=== PATIENT | female | born 1940 | race Caucasian/White ===

== ENCOUNTER 2019-07-02 13:54 | Inpatient (IN) | payer MEDICARE, BC ==
[~2019-07-02] VITALS: Ht 157.5 cm; Wt 92.4 kg
[~2019-07-02 13:54] MED LIST: ASPI-529 PO; BENA10TA11 PO; CA C-1 PO; CARB-87 PO; CHOL10002 PO; DOCU-148 PO; MELA1TAB21 PO; OMEG1CAP2 PO; OXYB5TAB16 PO; POLY119P2 PO; SIMV40TA PO; WARF10TA50 PO
[2019-07-02] MEDS ORDERED: acetaminophen 325mg tablet PO ONE (14:50)
--- NOTE | 2019-07-02 15:10 | NUR ---
PT OUT TO CT VIA [facility] WITH RAILROAD CAR LOADER
[2019-07-02 15:14] LABS: BASOPHILS % (AUTO) 0.7 % (0-1); EOSINOPHILS # (AUTO) 0.1 X10'3 (0-0.9); EOSINOPHILS % (AUTO) 1.2 % (0-6); HEMATOCRIT 39.2 % (35.0-45.0); HEMOGLOBIN 13.1 g/dl (12.0-16.0); LYMPHOCYTES # (AUTO) 1.2 X10'3 (1.1-4.8); LYMPHOCYTES % (AUTO) 18.1 % (21-51); MEAN CORPUSCULAR HEMOGLOBIN 31.1 PG (27.0-31.0); MEAN CORPUSCULAR HGB CONC 33.6 g/dL (33.0-36.5); MEAN CORPUSCULAR VOLUME 92.6 FL (78-98); MEAN PLATELET VOLUME 9.5 FL (7.4-10.4); MONOCYTES # (AUTO) 0.8 X10'3 (0-0.9); MONOCYTES % (AUTO) 11.1 % (2-12); NEUTROPHILS # (AUTO) 4.7 X10'3 (1.8-7.7); NEUTROPHILS % (AUTO) 68.9 % (42-75); PLATELET COUNT 146 X10'3 (140-440); RED BLOOD COUNT 4.23 X10'6 (4.20-5.60); RED CELL DISTRIBUTION WIDTH 13.7 % (11.5-14.5); WHITE BLOOD COUNT 6.9 X10'3 (4.5-11.0)
[2019-07-02 15:32] LABS: ALANINE AMINOTRANSFERASE 15 U/L (12-78); ALBUMIN 3.6 G/DL (3.4-5.0); ALBUMIN/GLOBULIN RATIO 1.2 (1.1-1.5); ALKALINE PHOSPHATASE 87 IU/L (46-116); ANION GAP 7 (8-16); ASPARTATE AMINO TRANSFERASE 50 U/L (10-37); BILIRUBIN,TOTAL 0.9 MG/DL (0.1-1.0); BLOOD UREA NITROGEN 25 MG/DL (7-18); BUN/CREATININE RATIO 32.5 (6.6-38.0); CALCIUM 9.1 MG/DL (8.5-10.1); CHLORIDE 108 MMOL/L (99-107); CREATININE 0.77 MG/DL (0.40-0.90); GLUCOSE 93 MG/DL (70-104); POTASSIUM 3.6 MMOL/L (3.5-5.1); SODIUM 144 MMOL/L (135-145); TOTAL CARBON DIOXIDE 28.7 MMOL/L (24-32); TOTAL PROTEIN 6.5 G/DL (6.4-8.2); eGFR 72 ML/MIN
[2019-07-02] MEDS ORDERED: CITA20TA26 PO (15:36)
[2019-07-02] MEDS ORDERED: ASPI81TA52 PO (15:36)
[2019-07-02 15:41] LABS: MAGNESIUM 1.7 MG/DL (1.5-2.4)
[2019-07-02] MEDS ORDERED: magnesium 4gm in 100ml NS 100 ML IV PRN (15:55)
[2019-07-02] MEDS ORDERED: bisacodyl 10mg suppository rectal RC PRN (15:55)
[2019-07-02] MEDS ORDERED: HYDROcodone/acetaminophen 5mg/325mg tablet PO PRN (15:55)
[2019-07-02] MEDS ORDERED: mag hydrox/Alum hydrox/simeth 30ml oral suspension PO PRN (15:55)
[2019-07-02] MEDS ORDERED: morphine 2 MG/ML inj. syringe IV PRN ×2 (15:55)
[2019-07-02] MEDS ORDERED: potassium Cl 20 mEq SR tablet PO PRN (15:55)
[2019-07-02] MEDS ORDERED: magnesium Cl slow-release 64mg tablet PO PRN (15:55)
[2019-07-02] MEDS ORDERED: potassium CL 10mEq/100ml bag 100 ML IV PRN ×2 (15:55)
[2019-07-02] MEDS ORDERED: magnesium 2GM in 50ml NS 50 ML IV PRN (15:55)
[2019-07-02] MEDS ORDERED: diphenhydrAMINE 25mg capsule PO PRN (15:55)
[2019-07-02] MEDS ORDERED: diphenhydrAMINE 50 mg/ml inj IV PRN (15:55)
[2019-07-02] MEDS ORDERED: acetaminophen 325mg tablet PO PRN ×2 (15:55)
[2019-07-02] MEDS ORDERED: ondansetron/PF 4mg/2ml inj IV PRN (15:55)
[2019-07-02] MEDS ORDERED: magnesium hydroxide 30ml (MOM) UD suspension PO PRN (15:55)
[2019-07-02] MEDS: K and/or MAG REPLACEMENT MC SCH (15:55)
[2019-07-02] MEDS ORDERED: acetaminophen 650mg rectal suppository RC PRN (15:55)
[2019-07-02] MEDS ORDERED: HYDROcodone/acetaminophen 10/325mg tab PO PRN (15:55)
[2019-07-02 15:56] LABS: CREATINE KINASE 1638 U/L (26-192)
[2019-07-02] MEDS: normal saline 1000ml 1,000 ML IV SCH (16:39)
--- NOTE | 2019-07-02 16:41 | NUR ---
ULTRASOUND AT THE BEDSIDE DOING AN ECHO STUDY
[2019-07-02 16:51] LABS: CLARITY,URINE SLIGHTLY CLOUDY (Clear); COLOR,URINE YELLOW (Yellow); GLUCOSE, URINE NEGATIVE (Neg); KETONES,URINE 15 mg/dl (Neg); LEUKOCYTE ESTERASE ,URINE NEGATIVE (Neg); NITRITES, URINE NEGATIVE (Neg); OCCULT BLOOD,URINE TRACE-INTACT (Neg); PH,URINE 6.5 (4.8-8.0); PROTEIN,URINE NEGATIVE (Neg)
[2019-07-02 16:52] LABS: UA COLLECTION TYPE STRAIGHT CATH
--- NOTE | 2019-07-02 17:05 | NUR ---
Received report from Arturo CARRION in ED, was provided opportunity to ask questions. Will assess patient when she arrives.
[2019-07-02 17:07] LABS: MUCUS STRANDS FEW /LPF (Neg); SQUAMOUS EPITHELIAL CELL,UR MANY /LPF (FEW)
[2019-07-02 17:08] LABS: BACTERIA,URINE FEW /HPF (Neg); WBC,URINE 0-4 /HPF (0-4)
[2019-07-02 17:30] VITALS: BP 156/68
--- NOTE | 2019-07-02 18:00 | NUR ---
Patient in room [facility]. I have received report from SHEYLA Burk and had the opportunity to ask questions and assume patient care.
--- NOTE | 2019-07-02 18:43 | NUR ---
Problems reprioritized. Patient report given, questions answered & plan of care reviewed with Jeffrey CARRION. Patient resting in bed, eagar for food but told her we will need to look at orders.
[2019-07-02 20:00] VITALS: BP 137/58
--- NOTE | 2019-07-02 20:21 | NUR ---
pt back from MRI
[2019-07-02] MEDS ORDERED: temazepam 15mg capsule PO PRN (21:00)
[2019-07-02] MEDS: carbidoba-levodopa 25-100mg tablet PO SCH (21:28)
[2019-07-02] MEDS: docusate sod 100mg capsule PO SCH (21:37)
[2019-07-02] MEDS: heparin, porcine 5000 units/ml vial SQ SCH (21:38)
[2019-07-03] VITALS (7 sets, daily range): BP systolic 98–158; BP diastolic 45–80
[2019-07-03] MEDS: normal saline 1000ml 1,000 ML IV SCH ×3 (01:53→17:35)
[2019-07-03 05:49] LABS: BASOPHILS % (AUTO) 0.9 % (0-1); EOSINOPHILS # (AUTO) 0.2 X10'3 (0-0.9); EOSINOPHILS % (AUTO) 4.1 % (0-6); HEMATOCRIT 37.6 % (35.0-45.0); HEMOGLOBIN 12.4 g/dl (12.0-16.0); LYMPHOCYTES # (AUTO) 1.6 X10'3 (1.1-4.8); LYMPHOCYTES % (AUTO) 30.9 % (21-51); MEAN CORPUSCULAR HEMOGLOBIN 30.5 PG (27.0-31.0); MEAN CORPUSCULAR VOLUME 92.4 FL (78-98); MEAN PLATELET VOLUME 9.8 FL (7.4-10.4); MONOCYTES # (AUTO) 0.6 X10'3 (0-0.9); MONOCYTES % (AUTO) 11.7 % (2-12); NEUTROPHILS # (AUTO) 2.7 X10'3 (1.8-7.7); NEUTROPHILS % (AUTO) 52.4 % (42-75); PLATELET COUNT 147 X10'3 (140-440); RED BLOOD COUNT 4.07 X10'6 (4.20-5.60); RED CELL DISTRIBUTION WIDTH 13.5 % (11.5-14.5); WHITE BLOOD COUNT 5.1 X10'3 (4.5-11.0)
[2019-07-03 06:26] LABS: ALANINE AMINOTRANSFERASE 11 U/L (12-78); ALBUMIN 3.1 G/DL (3.4-5.0); ALBUMIN/GLOBULIN RATIO 1.1 (1.1-1.5); ALKALINE PHOSPHATASE 74 IU/L (46-116); ANION GAP 9 (8-16); ASPARTATE AMINO TRANSFERASE 43 U/L (10-37); BILIRUBIN,TOTAL 0.7 MG/DL (0.1-1.0); BLOOD UREA NITROGEN 21 MG/DL (7-18); BUN/CREATININE RATIO 26.3 (6.6-38.0); CALCIUM 8.8 MG/DL (8.5-10.1); CHLORIDE 109 MMOL/L (99-107); CHOL/HDL RATIO 2.8 (0.00-4.99); CHOLESTEROL 156 MG/DL (0-200); CREATINE KINASE 935 U/L (26-192); GLUCOSE 84 MG/DL (70-104); HDL CHOLESTEROL 55 MG/DL (35-60); LDL CHOLESTEROL 90 MG/DL (50-100); MAGNESIUM 1.8 MG/DL (1.5-2.4); PHOSPHORUS 3.6 MG/DL (2.3-4.5); POTASSIUM 3.4 MMOL/L (3.5-5.1); SODIUM 145 MMOL/L (135-145); TOTAL CARBON DIOXIDE 27.4 MMOL/L (24-32); TOTAL PROTEIN 5.8 G/DL (6.4-8.2); TRIGLYCERIDES 90 MG/DL (20-135); eGFR 69 ML/MIN
--- NOTE | 2019-07-03 06:47 | NUR ---
Problems reprioritized. Patient report given, questions answered & plan of care reviewed with SHEYLA Aldana and SHEYLA Marie.
[2019-07-03] MEDS: docusate sod 100mg capsule PO SCH ×2 (07:50→20:16)
[2019-07-03] MEDS: vitamin D (cholecalciferol) 1,000 unit tablet PO SCH (07:50)
[2019-07-03] MEDS: carbidoba-levodopa 25-100mg tablet PO SCH ×2 (07:51→20:16)
[2019-07-03] MEDS: lisinopril 10 MG tablet PO SCH (07:51)
[2019-07-03] MEDS: aspirin 81mg tablet.DR PO SCH (07:52)
[2019-07-03] MEDS: atorvastatin 20mg tablet PO SCH (07:52)
[2019-07-03] MEDS: citalopram 20mg tablet PO SCH (07:53)
[2019-07-03] MEDS: heparin, porcine 5000 units/ml vial SQ SCH ×2 (07:56→20:22)
[2019-07-03] MEDS: potassium Cl 20 mEq SR tablet PO PRN ×3 (08:49→20:22)
[2019-07-03] MEDS: K and/or MAG REPLACEMENT MC SCH (08:50)
--- NOTE | 2019-07-03 14:20 | NUR ---
page sent to social services specialist per Dr Dominguez regarding patient being unsafe to drive, and that would like notification sent to [employer].
--- NOTE | 2019-07-03 14:22 | NUR ---
Straight cath done for urine culture per dr olivares. 85ml in urine per bladder scan, 70ml out.
--- NOTE | 2019-07-03 18:30 | NUR ---
Patient in room [facility]. I have received report from Katya RN and Joel RN and had the opportunity to ask questions and assume patient care.
--- NOTE | 2019-07-03 18:33 | NUR ---
Problems reprioritized. Patient report given, questions answered & plan of care reviewed with SHEYLA Murphy.
[2019-07-04] VITALS: BP 131/57
[2019-07-04 05:48] LABS: BASOPHILS % (AUTO) 0.6 % (0-1); EOSINOPHILS # (AUTO) 0.3 X10'3 (0-0.9); EOSINOPHILS % (AUTO) 6.7 % (0-6); HEMOGLOBIN 11.9 g/dl (12.0-16.0); LYMPHOCYTES # (AUTO) 1.3 X10'3 (1.1-4.8); LYMPHOCYTES % (AUTO) 29.6 % (21-51); MEAN CORPUSCULAR HEMOGLOBIN 31.2 PG (27.0-31.0); MEAN CORPUSCULAR HGB CONC 33.1 g/dL (33.0-36.5); MEAN CORPUSCULAR VOLUME 94.1 FL (78-98); MEAN PLATELET VOLUME 9.8 FL (7.4-10.4); MONOCYTES # (AUTO) 0.5 X10'3 (0-0.9); MONOCYTES % (AUTO) 12.3 % (2-12); NEUTROPHILS # (AUTO) 2.3 X10'3 (1.8-7.7); NEUTROPHILS % (AUTO) 50.8 % (42-75); PLATELET COUNT 128 X10'3 (140-440); RED BLOOD COUNT 3.82 X10'6 (4.20-5.60); RED CELL DISTRIBUTION WIDTH 13.7 % (11.5-14.5); WHITE BLOOD COUNT 4.5 X10'3 (4.5-11.0)
[2019-07-04 06:03] LABS: ALANINE AMINOTRANSFERASE 9 U/L (12-78); ALBUMIN 2.8 G/DL (3.4-5.0); ALBUMIN/GLOBULIN RATIO 1.2 (1.1-1.5); ALKALINE PHOSPHATASE 71 IU/L (46-116); ANION GAP 5 (8-16); ASPARTATE AMINO TRANSFERASE 26 U/L (10-37); BILIRUBIN,TOTAL 0.4 MG/DL (0.1-1.0); BLOOD UREA NITROGEN 18 MG/DL (7-18); BUN/CREATININE RATIO 26.1 (6.6-38.0); CALCIUM 8.4 MG/DL (8.5-10.1); CHLORIDE 111 MMOL/L (99-107); CREATINE KINASE 519 U/L (26-192); CREATININE 0.69 MG/DL (0.40-0.90); GLUCOSE 108 MG/DL (70-104); MAGNESIUM 1.7 MG/DL (1.5-2.4); PHOSPHORUS 3.4 MG/DL (2.3-4.5); POTASSIUM 4.4 MMOL/L (3.5-5.1); SODIUM 145 MMOL/L (135-145); TOTAL CARBON DIOXIDE 29.2 MMOL/L (24-32); TOTAL PROTEIN 5.2 G/DL (6.4-8.2); eGFR 82 ML/MIN
--- NOTE | 2019-07-04 06:18 | NUR ---
Problems reprioritized. Patient report given, questions answered & plan of care reviewed with SHEYLA Aldana and SHEYLA Murillo.
[2019-07-04 07:00] VITALS: BP 153/67
[2019-07-04] MEDS: normal saline 1000ml 1,000 ML IV SCH ×2 (07:53→15:18)
[2019-07-04] MEDS: K and/or MAG REPLACEMENT MC SCH (08:00)
[2019-07-04] MEDS: lisinopril 10 MG tablet PO SCH (08:50)
[2019-07-04] MEDS: heparin, porcine 5000 units/ml vial SQ SCH ×2 (08:51→20:24)
[2019-07-04] MEDS: carbidoba-levodopa 25-100mg tablet PO SCH ×2 (08:51→20:21)
[2019-07-04] MEDS: docusate sod 100mg capsule PO SCH ×2 (08:51→20:21)
[2019-07-04] MEDS: vitamin D (cholecalciferol) 1,000 unit tablet PO SCH (08:52)
[2019-07-04] MEDS: citalopram 20mg tablet PO SCH (08:52)
[2019-07-04] MEDS: atorvastatin 20mg tablet PO SCH (08:52)
[2019-07-04] MEDS: aspirin 81mg tablet.DR PO SCH (08:52)
[2019-07-04 11:00] VITALS: BP 162/73
[2019-07-04 17:44] VITALS: BP_SYST 131; BP_SYST 163; BP_SYST 171; BP_DIAS 68; BP_DIAS 70; BP_DIAS 77
[2019-07-04 18:00] VITALS: BP 107/60
--- NOTE | 2019-07-04 18:48 | NUR ---
Patient in room [facility]. I have received report from SHEYLA Aldana and had the opportunity to ask questions and assume patient care.
--- NOTE | 2019-07-04 18:48 | NUR ---
Problems reprioritized. Patient report given, questions answered & plan of care reviewed with SHEYLA Murphy.
[2019-07-05] VITALS: BP 128/60
[2019-07-05] MEDS: normal saline 1000ml 1,000 ML IV SCH (03:53)
[2019-07-05 06:10] LABS: BASOPHILS % (AUTO) 0.8 % (0-1); EOSINOPHILS # (AUTO) 0.4 X10'3 (0-0.9); EOSINOPHILS % (AUTO) 8.8 % (0-6); HEMATOCRIT 35.9 % (35.0-45.0); HEMOGLOBIN 11.8 g/dl (12.0-16.0); LYMPHOCYTES # (AUTO) 1.6 X10'3 (1.1-4.8); MEAN CORPUSCULAR HGB CONC 32.8 g/dL (33.0-36.5); MEAN CORPUSCULAR VOLUME 94.5 FL (78-98); MEAN PLATELET VOLUME 10.1 FL (7.4-10.4); MONOCYTES # (AUTO) 0.5 X10'3 (0-0.9); NEUTROPHILS # (AUTO) 2.1 X10'3 (1.8-7.7); NEUTROPHILS % (AUTO) 45.4 % (42-75); PLATELET COUNT 139 X10'3 (140-440); RED CELL DISTRIBUTION WIDTH 13.8 % (11.5-14.5); WHITE BLOOD COUNT 4.7 X10'3 (4.5-11.0)
--- NOTE | 2019-07-05 06:30 | NUR ---
Patient in room [facility] 358. I have received report from SHEYLA Murphy and had the opportunity to ask questions and assume patient care.
[2019-07-05 06:36] LABS: ALANINE AMINOTRANSFERASE 9 U/L (12-78); ALBUMIN 2.8 G/DL (3.4-5.0); ALBUMIN/GLOBULIN RATIO 1.1 (1.1-1.5); ALKALINE PHOSPHATASE 70 IU/L (46-116); ANION GAP 5 (8-16); ASPARTATE AMINO TRANSFERASE 25 U/L (10-37); BILIRUBIN,TOTAL 0.3 MG/DL (0.1-1.0); BLOOD UREA NITROGEN 14 MG/DL (7-18); BUN/CREATININE RATIO 15.9 (6.6-38.0); CALCIUM 8.7 MG/DL (8.5-10.1); CHLORIDE 110 MMOL/L (99-107); CREATININE 0.88 MG/DL (0.40-0.90); GLUCOSE 89 MG/DL (70-104); MAGNESIUM 1.7 MG/DL (1.5-2.4); PHOSPHORUS 3.6 MG/DL (2.3-4.5); POTASSIUM 4.5 MMOL/L (3.5-5.1); SODIUM 144 MMOL/L (135-145); TOTAL CARBON DIOXIDE 29.1 MMOL/L (24-32); TOTAL PROTEIN 5.4 G/DL (6.4-8.2); eGFR 62 ML/MIN
--- NOTE | 2019-07-05 06:57 | NUR ---
Problems reprioritized. Patient report given, questions answered & plan of care reviewed with SHEYLA Aldana.
[2019-07-05 07:05] VITALS: BP 158/71
[2019-07-05] MEDS: K and/or MAG REPLACEMENT MC SCH (08:00)
[2019-07-05] MEDS: heparin, porcine 5000 units/ml vial SQ SCH (09:01)
[2019-07-05] MEDS: atorvastatin 20mg tablet PO SCH (09:01)
[2019-07-05] MEDS: vitamin D (cholecalciferol) 1,000 unit tablet PO SCH (09:01)
[2019-07-05] MEDS: carbidoba-levodopa 25-100mg tablet PO SCH (09:01)
[2019-07-05] MEDS: aspirin 81mg tablet.DR PO SCH (09:01)
[2019-07-05] MEDS: docusate sod 100mg capsule PO SCH (09:01)
[2019-07-05] MEDS: citalopram 20mg tablet PO SCH (09:02)
[2019-07-05] MEDS: lisinopril 10 MG tablet PO SCH (09:03)
--- NOTE | 2019-07-05 11:49 | NUR ---
informed of positive orthostatics no new orders at this time
[2019-07-05 11:52] VITALS: BP_SYST 106; BP_SYST 155; BP_DIAS 68; BP_DIAS 74
[2019-07-05 12:05] VITALS: BP 155/74
--- NOTE | 2019-07-05 14:25 | NUR ---
Called and gave report to Lidia, patient to be picked up at [id number]
--- NOTE | 2019-07-05 14:55 | NUR ---
Patient discharged to [facility], IV taken out, Tele taken off, Patient stable and appropriate for discharge, all belongings sent with patient, patient taken by Maria Alejandra Cargo
== END 2019-07-05 14:55 | DRG 558 ==
LOC: ER 13:55 → ED HOLD 16:16 → SUR 3N 17:21
PROVIDERS: ADMIT Family Medicine; ATTEND Internal Medicine
DX: M62.82 Rhabdomyolysis (principal); T42.8X5A Adverse effect of antiparkinsonism drugs and other central muscle-tone depressants, initial encounter; I95.1 Orthostatic hypotension; G20 Parkinson's disease; E78.5 Hyperlipidemia, unspecified; I10 Essential (primary) hypertension; Z60.2 Problems related to living alone; R29.6 Repeated falls; W18.39XA Other fall on same level, initial encounter; Z96.651 Presence of right artificial knee joint; F32.9 Major depressive disorder, single episode, unspecified; F41.9 Anxiety disorder, unspecified; Z90.710 Acquired absence of both cervix and uterus; Z95.0 Presence of cardiac pacemaker; Y93.89 Activity, other specified; Y92.89 Other specified places as the place of occurrence of the external cause; Y99.8 Other external cause status
CPT/HCPCS: 36415; 70450; 70544; 70551; 71045; 72125; 73560; 80053; 80061; 81001; 82550; 83036; 83735; 84100; 84484; 85025; 85610; 87081; 87088; 93005; 93306; 93880; 97110; 97116; 97530; 99285; G0378; J1644; J2405; J7030

== ENCOUNTER 2020-08-24 22:35 | Inpatient (IN) | payer MEDICARE, BC ==
[~2020-08-24] VITALS: Ht 170.2 cm; Wt 100.0 kg
[~2020-08-24 22:35] MED LIST changes: -ASPI-529 PO; +ASPI81TA52 PO; -CA C-1 PO; +CITA20TA26 PO; -MELA1TAB21 PO; -OMEG1CAP2 PO; -POLY119P2 PO; -WARF10TA50 PO
[2020-08-24] MEDS ORDERED: fentaNYL/PF 50MCG/1 ML 2ML syringe IV ONE (22:45)
[2020-08-24] MEDS ORDERED: ondansetron/PF 4mg/2ml inj IV ONE (22:45)
[2020-08-24 23:07] LABS: BASOPHILS % (AUTO) 0.3 % (0-1); EOSINOPHILS # (AUTO) 0.4 X10'3 (0-0.9); EOSINOPHILS % (AUTO) 2.4 % (0-6); HEMATOCRIT 36.2 % (35.0-45.0); HEMOGLOBIN 11.9 g/dl (12.0-16.0); LYMPHOCYTES # (AUTO) 0.7 X10'3 (1.1-4.8); LYMPHOCYTES % (AUTO) 4.8 % (21-51); MEAN CORPUSCULAR HEMOGLOBIN 30.1 PG (27.0-31.0); MEAN CORPUSCULAR HGB CONC 32.8 g/dL (33.0-36.5); MEAN CORPUSCULAR VOLUME 91.8 FL (78-98); MEAN PLATELET VOLUME 8.2 FL (7.4-10.4); MONOCYTES # (AUTO) 1.1 X10'3 (0-0.9); MONOCYTES % (AUTO) 7.5 % (2-12); PLATELET COUNT 203 X10'3 (140-440); RED BLOOD COUNT 3.94 X10'6 (4.20-5.60); RED CELL DISTRIBUTION WIDTH 13.4 % (11.5-14.5); WHITE BLOOD COUNT 15.3 X10'3 (4.5-11.0)
[2020-08-24 23:19] LABS: ALANINE AMINOTRANSFERASE 9 U/L (12-78); ALBUMIN 2.9 G/DL (3.4-5.0); ALBUMIN/GLOBULIN RATIO 0.9 (1.1-1.5); ALKALINE PHOSPHATASE 104 IU/L (46-116); ANION GAP 8 (8-16); ASPARTATE AMINO TRANSFERASE 47 U/L (10-37); BILIRUBIN,TOTAL 0.5 MG/DL (0.1-1.0); BLOOD UREA NITROGEN 21 MG/DL (7-18); BUN/CREATININE RATIO 21.2 (6.6-38.0); CALCIUM 9.1 MG/DL (8.5-10.1); CHLORIDE 105 MMOL/L (99-107); CREATININE 0.99 MG/DL (0.40-0.90); GLUCOSE 119 MG/DL (70-104); POTASSIUM 3.2 MMOL/L (3.5-5.1); SODIUM 140 MMOL/L (135-145); TOTAL CARBON DIOXIDE 27.3 MMOL/L (24-32); eGFR 54 ML/MIN
[2020-08-24] MEDS ORDERED: propofol 10mg/ml 20ml vial IV ONE (23:20)
[2020-08-25] VITALS (18 sets, daily range): BP systolic 96–150; BP diastolic 44–81
[2020-08-25] MEDS ORDERED: normal saline 1000ml 1,000 ML IV ONE (00:15)
[2020-08-25] MEDS ORDERED: ketorolac trometh. 30mg/ml inj. IM ONE ×2 (00:15→00:55)
[2020-08-25] MEDS ORDERED: acetaminophen 325mg tablet PO PRN (04:45)
[2020-08-25] MEDS ORDERED: potassium Cl 20 mEq SR tablet PO PRN (04:45)
[2020-08-25] MEDS ORDERED: potassium CL 10mEq/100ml bag 100 ML IV PRN ×2 (04:45)
[2020-08-25] MEDS ORDERED: morphine 2 MG/ML inj. syringe IV PRN ×3 (04:45→12:05)
[2020-08-25] MEDS ORDERED: ondansetron/PF 4mg/2ml inj IV PRN ×2 (04:45→12:05)
[2020-08-25] MEDS ORDERED: mag hydrox/Alum hydrox/simeth 30ml oral suspension PO PRN (04:45)
[2020-08-25] MEDS ORDERED: magnesium hydroxide 30ml (MOM) UD suspension PO PRN (04:45)
--- NOTE | 2020-08-25 05:15 | NUR ---
PT ARRIVED FROM ER. PT HAS BEEN ORIENTED TO THE ROOM. VSS. PICTURE TAKEN. RECEIVED REPORT FROM SHEYLA JOSEPH PRIOR TO PT'S ARRIVAL.
[2020-08-25] MEDS: potassium Cl 20 mEq SR tablet PO PRN ×2 (05:30→09:17)
[2020-08-25] MEDS: normal saline 1000ml 1,000 ML IV SCH ×2 (05:30→17:09)
--- NOTE | 2020-08-25 06:07 | NUR ---
Problems reprioritized. Patient report given, questions answered & plan of care reviewed with SHEYLA TAVARES.
--- NOTE | 2020-08-25 06:21 | NUR ---
Patient in room [facility] 4009. I have received report from Ama CARRION and had the opportunity to ask questions and assume patient care.
[2020-08-25] MEDS: K and/or MAG REPLACEMENT MC SCH ×3 (08:00→22:19)
[2020-08-25] MEDS: aspirin 81mg tablet.DR PO SCH (08:00)
[2020-08-25] MEDS: docusate sod 100mg capsule PO SCH (08:00)
[2020-08-25] MEDS ORDERED: magnesium 4gm in 100ml NS 100 ML IV PRN (09:10)
[2020-08-25] MEDS ORDERED: magnesium Cl slow-release 64mg tablet PO PRN (09:10)
[2020-08-25] MEDS: lisinopril 10 MG tablet PO SCH (09:12)
[2020-08-25] MEDS: carbidoba-levodopa 25-100mg tablet PO SCH ×2 (09:17→22:19)
[2020-08-25] MEDS: citalopram 20mg tablet PO SCH (09:17)
[2020-08-25] MEDS ORDERED: pneumococcal 23-VAL P-sac vacc 25 mcg/0.5ml vial IMVAC ONE (10:00)
[2020-08-25] MEDS ORDERED: proCHLORperazine 10 MG/2 ml inj IV PRN (12:05)
[2020-08-25] MEDS ORDERED: meperidine/PF 25mg/ml syringe IV PRN ×3 (12:05)
[2020-08-25] MEDS ORDERED: morphine 4 MG/ML inj SYRINge IV PRN (12:05)
[2020-08-25] MEDS ORDERED: ringers solution, lacted 1,000 ML IV SCH (12:05)
[2020-08-25] MEDS ORDERED: fentaNYL/PF 50MCG/1 ML 2ML syringe ONE (13:33)
[2020-08-25] MEDS ORDERED: MIDAZolam 5mg/5ml vial ONE (13:33)
[2020-08-25] MEDS ORDERED: ROPIVAcaine 0.5% (5mg/ml) 30ml vial ONE (15:03)
--- NOTE | 2020-08-25 15:41 | NUR ---
RECEIVED FROM OR VIA BED ACCOMPANIED BY ANESTHESIOLOGIST DR STEINER, REPORT GIVEN. PT DROWSY BUT AROUSES WITH NO COMPLAINT OF PAIN. 20 GAUGE PIV R HAND PATENT AND RUNNING LR AT 100 ML/HR. F/C DRAINING CLEAR YELLOW FLUID. OLMAN SPLINT DRESSING RLE CDI. SPINAL SENSATION AT UMBILICUS. PPULSES PRESENT, UNABLE TO PALPATE RLE COVERED BY SPLINT. BRISK CAP REFILL, SKIN PINK AND WARM, VSS, SCD APPLIED, RESTING COMFORTABLY.
--- NOTE | 2020-08-25 16:51 | NUR ---
TRANSFERRED VIA BED WITH ALL BED RAILS UP, REPORT GIVEN. PT AWAKE AND ALERT WITH NO COMPLAINT OF PAIN. 20 GAUGE PIV R HAND PATENT AND RUNNING LR AT 100 ML/HR. F/C DRAINING CLEAR YELLOW FLUID. OLMAN SPLINT DRESSING RLE CDI. SPINAL SENSATION AT HIPS. PPULSES PRESENT, UNABLE TO PALPATE RLE COVERED BY SPLINT. BRISK CAP REFILL, SKIN PINK AND WARM, VSS, SCD APPLIED, RESTING COMFORTABLY. LEFT IN CARE OF CHAITANYA CARRION
[2020-08-25] MEDS: ceFAZolin/D5W- 1GM premix 50 ML IV SCH ×2 (17:09→23:56)
--- NOTE | 2020-08-25 18:13 | NUR ---
Problems reprioritized. Patient report given, questions answered & plan of care reviewed with Amy CARRION.
[2020-08-25 19:43] LABS: CLARITY,URINE CLEAR (Clear); COLOR,URINE YELLOW (Yellow); GLUCOSE, URINE NEGATIVE (Neg); KETONES,URINE TRACE mg/dl (Neg); LEUKOCYTE ESTERASE ,URINE NEGATIVE (Neg); NITRITES, URINE NEGATIVE (Neg); OCCULT BLOOD,URINE LARGE (Neg); PH,URINE 5.5 (4.8-8.0); PROTEIN,URINE 30 mg/dl (Neg); UROBILINOGEN,URINE 0.2 E.U/dL (0.2-1.0)
[2020-08-25 19:46] LABS: UA COLLECTION TYPE FOLEY CATH
[2020-08-25 19:50] LABS: SQUAMOUS EPITHELIAL CELL,UR FEW /LPF (FEW)
[2020-08-25 19:51] LABS: RBC,URINE 20-50 /HPF (0-2)
[2020-08-25 19:52] LABS: BACTERIA,URINE 2+ /HPF (Neg); MUCUS STRANDS FEW /LPF (Neg)
--- NOTE | 2020-08-25 22:20 | NUR ---
pt too sleepy to have a safe swallow. unable to keep eyes open but follows commands and helps with turns. nonverbal at this time. incont stool. repositioned. noted large bruise on left upper buttock.
[2020-08-26 01:53] VITALS: BP 121/46
[2020-08-26] MEDS: normal saline 1000ml 1,000 ML IV SCH ×2 (03:58→22:16)
[2020-08-26 06:00] VITALS: BP 128/60
--- NOTE | 2020-08-26 06:40 | NUR ---
reported to days. noted Dr. Purcell stopped by to see patient. working with PT right now
[2020-08-26 06:57] LABS: BASOPHILS % (AUTO) 0.3 % (0-1); EOSINOPHILS % (AUTO) 0 % (0-6); HEMATOCRIT 34.5 % (35.0-45.0); HEMOGLOBIN 11.1 g/dl (12.0-16.0); LYMPHOCYTES # (AUTO) 0.6 X10'3 (1.1-4.8); MEAN CORPUSCULAR HEMOGLOBIN 29.6 PG (27.0-31.0); MEAN CORPUSCULAR HGB CONC 32.2 g/dL (33.0-36.5); MEAN PLATELET VOLUME 8.9 FL (7.4-10.4); MONOCYTES # (AUTO) 0.9 X10'3 (0-0.9); MONOCYTES % (AUTO) 6.3 % (2-12); NEUTROPHILS % (AUTO) 89.4 % (42-75); PLATELET COUNT 209 X10'3 (140-440); RED BLOOD COUNT 3.75 X10'6 (4.20-5.60); RED CELL DISTRIBUTION WIDTH 13.4 % (11.5-14.5); WHITE BLOOD COUNT 14.5 X10'3 (4.5-11.0)
[2020-08-26 07:08] LABS: ALANINE AMINOTRANSFERASE 16 U/L (12-78); ALBUMIN 2.3 G/DL (3.4-5.0); ALBUMIN/GLOBULIN RATIO 0.8 (1.1-1.5); ALKALINE PHOSPHATASE 94 IU/L (46-116); ANION GAP 7 (8-16); ASPARTATE AMINO TRANSFERASE 34 U/L (10-37); BILIRUBIN,TOTAL 0.3 MG/DL (0.1-1.0); BLOOD UREA NITROGEN 17 MG/DL (7-18); BUN/CREATININE RATIO 19.1 (6.6-38.0); CALCIUM 8.8 MG/DL (8.5-10.1); CHLORIDE 112 MMOL/L (99-107); CREATININE 0.89 MG/DL (0.40-0.90); GLUCOSE 117 MG/DL (70-104); POTASSIUM 4.2 MMOL/L (3.5-5.1); SODIUM 145 MMOL/L (135-145); TOTAL CARBON DIOXIDE 26.2 MMOL/L (24-32); TOTAL PROTEIN 5.3 G/DL (6.4-8.2); eGFR 61 ML/MIN
[2020-08-26] MEDS: K and/or MAG REPLACEMENT MC SCH ×4 (08:00→19:40)
[2020-08-26] MEDS: docusate sod 100mg capsule PO SCH (08:00)
[2020-08-26] MEDS: carbidoba-levodopa 25-100mg tablet PO SCH ×2 (08:35→19:39)
[2020-08-26] MEDS: lisinopril 10 MG tablet PO SCH (08:36)
[2020-08-26] MEDS: citalopram 20mg tablet PO SCH (08:36)
[2020-08-26] MEDS: aspirin 81mg tablet.DR PO SCH (08:36)
[2020-08-26 10:00] VITALS: BP 105/42
[2020-08-26 12:08] LABS: C DIFF ANTIGEN NEGATIVE (NEGATIVE); C DIFF SPECIMEN=DIARRHEA? ACCEPTABLE; C DIFFICILE TOXINS A&B NEGATIVE (Neg)
[2020-08-26 14:00] VITALS: BP 101/44
[2020-08-26 18:00] VITALS: BP 119/53
--- NOTE | 2020-08-26 18:16 | NUR ---
Problems reprioritized. Patient report given, questions answered & plan of care reviewed with Gertrude CARRION.
--- NOTE | 2020-08-26 18:17 | NUR ---
Patient in room [facility]TH[facility] 4009. I have received report from Alyssa CARRION and had the opportunity to ask questions and assume patient care.
[2020-08-26 22:00] VITALS: BP 103/40
[2020-08-26] MEDS: CefTRIAXone/D5W-Rocephin 1gm 50 ML IV SCH (22:59)
[2020-08-26] MEDS: heparin, porcine 5000 units/ml vial SQ SCH (23:03)
[2020-08-27 05:59] LABS: BASOPHILS # (AUTO) 0.1 X10'3 (0-0.2); BASOPHILS % (AUTO) 0.4 % (0-1); EOSINOPHILS # (AUTO) 0.2 X10'3 (0-0.9); EOSINOPHILS % (AUTO) 0.7 % (0-6); HEMATOCRIT 32.6 % (35.0-45.0); HEMOGLOBIN 10.6 g/dl (12.0-16.0); LYMPHOCYTES # (AUTO) 0.5 X10'3 (1.1-4.8); LYMPHOCYTES % (AUTO) 2.6 % (21-51); MEAN CORPUSCULAR HEMOGLOBIN 30.3 PG (27.0-31.0); MEAN CORPUSCULAR HGB CONC 32.7 g/dL (33.0-36.5); MEAN CORPUSCULAR VOLUME 92.6 FL (78-98); MEAN PLATELET VOLUME 9.4 FL (7.4-10.4); MONOCYTES # (AUTO) 1.3 X10'3 (0-0.9); MONOCYTES % (AUTO) 6.4 % (2-12); NEUTROPHILS # (AUTO) 18.4 X10'3 (1.8-7.7); NEUTROPHILS % (AUTO) 89.9 % (42-75); PLATELET COUNT 220 X10'3 (140-440); RED BLOOD COUNT 3.52 X10'6 (4.20-5.60); RED CELL DISTRIBUTION WIDTH 13.6 % (11.5-14.5); WHITE BLOOD COUNT 20.5 X10'3 (4.5-11.0)
[2020-08-27 06:00] VITALS: BP 106/44
--- NOTE | 2020-08-27 06:31 | NUR ---
Problems reprioritized. Patient report given, questions answered & plan of care reviewed with Nuha CARRION.
[2020-08-27 06:44] LABS: PLATELET ESTIMATE NORMAL; TOTAL CELLS COUNTED 100; TOXIC GRANULATION 1+; TOXIC VACUOLATION 2+
[2020-08-27] MEDS: docusate sod 100mg capsule PO SCH (08:00)
[2020-08-27] MEDS: K and/or MAG REPLACEMENT MC SCH ×4 (08:00→19:36)
[2020-08-27 08:14] LABS: ALANINE AMINOTRANSFERASE 10 U/L (12-78); ALBUMIN 2.4 G/DL (3.4-5.0); ALBUMIN/GLOBULIN RATIO 0.8 (1.1-1.5); ALKALINE PHOSPHATASE 96 IU/L (46-116); ANION GAP 9 (8-16); ASPARTATE AMINO TRANSFERASE 47 U/L (10-37); BILIRUBIN,TOTAL 0.4 MG/DL (0.1-1.0); BLOOD UREA NITROGEN 20 MG/DL (7-18); BUN/CREATININE RATIO 22.2 (6.6-38.0); CALCIUM 8.8 MG/DL (8.5-10.1); CHLORIDE 106 MMOL/L (99-107); GLUCOSE 105 MG/DL (70-104); MAGNESIUM 1.7 MG/DL (1.5-2.4); POTASSIUM 3.5 MMOL/L (3.5-5.1); SODIUM 139 MMOL/L (135-145); TOTAL CARBON DIOXIDE 24.2 MMOL/L (24-32); TOTAL PROTEIN 5.4 G/DL (6.4-8.2); eGFR 60 ML/MIN
[2020-08-27] MEDS: lisinopril 10 MG tablet PO SCH (09:54)
[2020-08-27] MEDS: aspirin 81mg tablet.DR PO SCH (09:54)
[2020-08-27] MEDS: carbidoba-levodopa 25-100mg tablet PO SCH ×2 (09:54→19:35)
[2020-08-27] MEDS: citalopram 20mg tablet PO SCH (09:54)
[2020-08-27] MEDS: heparin, porcine 5000 units/ml vial SQ SCH ×2 (09:55→19:36)
[2020-08-27 10:00] VITALS: BP 96/42
[2020-08-27 18:00] VITALS: BP 119/48
--- NOTE | 2020-08-27 18:28 | NUR ---
Patient in room [facility]TH[facility] 4009. I have received report from Nuha CARRION and had the opportunity to ask questions and assume patient care.
[2020-08-27] MEDS: lactobacillus rhamnosus 10,000 MMU CELLS/CAPSULE PO SCH (19:35)
[2020-08-27] MEDS: normal saline 1000ml 1,000 ML IV SCH (19:44)
[2020-08-27] MEDS: CefTRIAXone/D5W-Rocephin 1gm 50 ML IV SCH (21:27)
[2020-08-27 22:00] VITALS: BP 108/55
[2020-08-28 06:00] VITALS: BP 118/34
--- NOTE | 2020-08-28 06:18 | NUR ---
Problems reprioritized. Patient report given, questions answered & plan of care reviewed with Sabrina CARRION.
[2020-08-28 07:02] LABS: BASOPHILS % (AUTO) 0.2 % (0-1); EOSINOPHILS # (AUTO) 0.4 X10'3 (0-0.9); EOSINOPHILS % (AUTO) 2.5 % (0-6); HEMATOCRIT 29.7 % (35.0-45.0); HEMOGLOBIN 9.9 g/dl (12.0-16.0); LYMPHOCYTES # (AUTO) 0.7 X10'3 (1.1-4.8); LYMPHOCYTES % (AUTO) 4.3 % (21-51); MEAN CORPUSCULAR HEMOGLOBIN 30.3 PG (27.0-31.0); MEAN CORPUSCULAR HGB CONC 33.2 g/dL (33.0-36.5); MEAN CORPUSCULAR VOLUME 91.4 FL (78-98); MEAN PLATELET VOLUME 8.6 FL (7.4-10.4); MONOCYTES # (AUTO) 1.1 X10'3 (0-0.9); MONOCYTES % (AUTO) 6.6 % (2-12); NEUTROPHILS # (AUTO) 14.6 X10'3 (1.8-7.7); NEUTROPHILS % (AUTO) 86.4 % (42-75); PLATELET COUNT 228 X10'3 (140-440); RED BLOOD COUNT 3.25 X10'6 (4.20-5.60); RED CELL DISTRIBUTION WIDTH 13.5 % (11.5-14.5); WHITE BLOOD COUNT 16.8 X10'3 (4.5-11.0)
[2020-08-28 07:17] LABS: ALANINE AMINOTRANSFERASE 9 U/L (12-78); ALBUMIN 1.9 G/DL (3.4-5.0); ALBUMIN/GLOBULIN RATIO 0.7 (1.1-1.5); ALKALINE PHOSPHATASE 86 IU/L (46-116); ANION GAP 7 (8-16); ASPARTATE AMINO TRANSFERASE 38 U/L (10-37); BILIRUBIN,TOTAL 0.3 MG/DL (0.1-1.0); BLOOD UREA NITROGEN 16 MG/DL (7-18); BUN/CREATININE RATIO 22.5 (6.6-38.0); CALCIUM 8.5 MG/DL (8.5-10.1); CHLORIDE 109 MMOL/L (99-107); CREATININE 0.71 MG/DL (0.40-0.90); GLUCOSE 108 MG/DL (70-104); MAGNESIUM 1.7 MG/DL (1.5-2.4); POTASSIUM 3.4 MMOL/L (3.5-5.1); SODIUM 140 MMOL/L (135-145); TOTAL CARBON DIOXIDE 24.5 MMOL/L (24-32); TOTAL PROTEIN 4.6 G/DL (6.4-8.2); eGFR 79 ML/MIN
[2020-08-28 07:38] LABS: PLATELET ESTIMATE NORMAL; TOTAL CELLS COUNTED 100
[2020-08-28] MEDS: K and/or MAG REPLACEMENT MC SCH ×4 (08:00→12:35)
[2020-08-28] MEDS: docusate sod 100mg capsule PO SCH (08:00)
[2020-08-28] MEDS: carbidoba-levodopa 25-100mg tablet PO SCH ×2 (08:29→19:02)
[2020-08-28] MEDS: citalopram 20mg tablet PO SCH (08:29)
[2020-08-28] MEDS: lisinopril 10 MG tablet PO SCH (08:30)
[2020-08-28] MEDS: lactobacillus rhamnosus 10,000 MMU CELLS/CAPSULE PO SCH ×2 (08:30→19:02)
[2020-08-28] MEDS: aspirin 81mg tablet.DR PO SCH (08:30)
[2020-08-28] MEDS: heparin, porcine 5000 units/ml vial SQ SCH ×2 (08:31→19:03)
[2020-08-28 10:00] VITALS: BP 91/48
[2020-08-28] MEDS ORDERED: albuterol 2.5 MG/3 ML nebule ONE (16:11)
[2020-08-28] MEDS: albuterol 2.5 MG/3 ML nebule NEB PRN ×2 (16:14→21:22)
[2020-08-28 18:00] VITALS: BP 127/61
--- NOTE | 2020-08-28 18:16 | NUR ---
Problems reprioritized. Patient report given, questions answered & plan of care reviewed with tricia.
--- NOTE | 2020-08-28 18:23 | NUR ---
Patient in room [facility]TH[facility] 4009. I have received report from Sabrina CARRION and had the opportunity to ask questions and assume patient care.
[2020-08-28] MEDS: CefTRIAXone/D5W-Rocephin 1gm 50 ML IV SCH (21:36)
[2020-08-28 22:00] VITALS: BP 122/46
[2020-08-29 05:22] LABS: BASOPHILS # (AUTO) 0.1 X10'3 (0-0.2); BASOPHILS % (AUTO) 0.4 % (0-1); EOSINOPHILS # (AUTO) 0.5 X10'3 (0-0.9); EOSINOPHILS % (AUTO) 3.6 % (0-6); HEMOGLOBIN 9.8 g/dl (12.0-16.0); LYMPHOCYTES # (AUTO) 0.7 X10'3 (1.1-4.8); MEAN CORPUSCULAR HEMOGLOBIN 29.7 PG (27.0-31.0); MEAN CORPUSCULAR HGB CONC 32.8 g/dL (33.0-36.5); MEAN CORPUSCULAR VOLUME 90.6 FL (78-98); MEAN PLATELET VOLUME 8.2 FL (7.4-10.4); MONOCYTES # (AUTO) 1.2 X10'3 (0-0.9); MONOCYTES % (AUTO) 8.5 % (2-12); NEUTROPHILS # (AUTO) 11.5 X10'3 (1.8-7.7); NEUTROPHILS % (AUTO) 82.5 % (42-75); PLATELET COUNT 247 X10'3 (140-440); RED BLOOD COUNT 3.31 X10'6 (4.20-5.60); RED CELL DISTRIBUTION WIDTH 13.3 % (11.5-14.5)
[2020-08-29 05:33] LABS: ALANINE AMINOTRANSFERASE 10 U/L (12-78); ALBUMIN 1.9 G/DL (3.4-5.0); ALBUMIN/GLOBULIN RATIO 0.7 (1.1-1.5); ALKALINE PHOSPHATASE 88 IU/L (46-116); ANION GAP 4 (8-16); ASPARTATE AMINO TRANSFERASE 35 U/L (10-37); BILIRUBIN,TOTAL 0.4 MG/DL (0.1-1.0); BLOOD UREA NITROGEN 14 MG/DL (7-18); BUN/CREATININE RATIO 16.5 (6.6-38.0); CALCIUM 8.4 MG/DL (8.5-10.1); CHLORIDE 109 MMOL/L (99-107); CREATININE 0.85 MG/DL (0.40-0.90); GLUCOSE 105 MG/DL (70-104); MAGNESIUM 1.7 MG/DL (1.5-2.4); POTASSIUM 3.5 MMOL/L (3.5-5.1); SODIUM 140 MMOL/L (135-145); TOTAL CARBON DIOXIDE 27.4 MMOL/L (24-32); TOTAL PROTEIN 4.8 G/DL (6.4-8.2); eGFR 64 ML/MIN
[2020-08-29 06:10] VITALS: BP 128/56
--- NOTE | 2020-08-29 06:30 | NUR ---
Patient in room [facility]TH[facility] 4009. I have received report from Jessica CARRION and had the opportunity to ask questions and assume patient care.
--- NOTE | 2020-08-29 06:35 | NUR ---
Problems reprioritized. Patient report given, questions answered & plan of care reviewed with Silvina CARRION.
[2020-08-29] MEDS: K and/or MAG REPLACEMENT MC SCH ×4 (08:00→20:00)
[2020-08-29] MEDS: docusate sod 100mg capsule PO SCH ×2 (08:00→09:09)
[2020-08-29] MEDS: heparin, porcine 5000 units/ml vial SQ SCH ×2 (09:09→20:42)
[2020-08-29] MEDS: citalopram 20mg tablet PO SCH (09:09)
[2020-08-29] MEDS: aspirin 81mg tablet.DR PO SCH (09:09)
[2020-08-29] MEDS: carbidoba-levodopa 25-100mg tablet PO SCH ×2 (09:09→20:34)
[2020-08-29] MEDS: lactobacillus rhamnosus 10,000 MMU CELLS/CAPSULE PO SCH ×2 (09:09→20:34)
[2020-08-29] MEDS: lisinopril 10 MG tablet PO SCH (09:10)
[2020-08-29 10:00] VITALS: BP 123/57
[2020-08-29] MEDS: loperamide 2mg capsule PO PRN ×2 (10:42→20:34)
[2020-08-29] MEDS: albuterol 2.5 MG/3 ML nebule NEB SCH ×3 (10:55→20:48)
[2020-08-29] MEDS: normal saline 1000ml 1,000 ML IV SCH (14:48)
[2020-08-29 18:00] VITALS: BP 99/40
--- NOTE | 2020-08-29 18:30 | NUR ---
Patient in room [facility]TH[facility] 4009. I have received report from Silvina CARRION and had the opportunity to ask questions and assume patient care.
--- NOTE | 2020-08-29 18:37 | NUR ---
Problems reprioritized. Patient report given, questions answered & plan of care reviewed with Valentina CARRION.
[2020-08-29] MEDS: CefTRIAXone/D5W-Rocephin 1gm 50 ML IV SCH (20:35)
[2020-08-29 22:00] VITALS: BP 122/44
[2020-08-30] MEDS: albuterol 2.5 MG/3 ML nebule NEB SCH ×3 (03:16→13:42)
[2020-08-30 05:46] LABS: BASOPHILS # (AUTO) 0.1 X10'3 (0-0.2); BASOPHILS % (AUTO) 0.4 % (0-1); EOSINOPHILS # (AUTO) 0.7 X10'3 (0-0.9); EOSINOPHILS % (AUTO) 4.9 % (0-6); HEMATOCRIT 28.4 % (35.0-45.0); HEMOGLOBIN 9.3 g/dl (12.0-16.0); LYMPHOCYTES # (AUTO) 0.8 X10'3 (1.1-4.8); LYMPHOCYTES % (AUTO) 6.2 % (21-51); MEAN CORPUSCULAR HEMOGLOBIN 29.5 PG (27.0-31.0); MEAN CORPUSCULAR HGB CONC 32.7 g/dL (33.0-36.5); MEAN CORPUSCULAR VOLUME 90.3 FL (78-98); MEAN PLATELET VOLUME 8.1 FL (7.4-10.4); MONOCYTES # (AUTO) 1.3 X10'3 (0-0.9); MONOCYTES % (AUTO) 9.5 % (2-12); NEUTROPHILS # (AUTO) 10.6 X10'3 (1.8-7.7); PLATELET COUNT 266 X10'3 (140-440); RED BLOOD COUNT 3.15 X10'6 (4.20-5.60); RED CELL DISTRIBUTION WIDTH 13.6 % (11.5-14.5); WHITE BLOOD COUNT 13.4 X10'3 (4.5-11.0)
[2020-08-30 05:55] LABS: ALANINE AMINOTRANSFERASE 11 U/L (12-78); ALBUMIN 1.8 G/DL (3.4-5.0); ALBUMIN/GLOBULIN RATIO 0.6 (1.1-1.5); ALKALINE PHOSPHATASE 90 IU/L (46-116); ANION GAP 5 (8-16); ASPARTATE AMINO TRANSFERASE 32 U/L (10-37); BILIRUBIN,TOTAL 0.3 MG/DL (0.1-1.0); BLOOD UREA NITROGEN 14 MG/DL (7-18); BUN/CREATININE RATIO 17.3 (6.6-38.0); CALCIUM 8.5 MG/DL (8.5-10.1); CHLORIDE 111 MMOL/L (99-107); CREATININE 0.81 MG/DL (0.40-0.90); GLUCOSE 102 MG/DL (70-104); MAGNESIUM 1.8 MG/DL (1.5-2.4); POTASSIUM 3.5 MMOL/L (3.5-5.1); SODIUM 141 MMOL/L (135-145); TOTAL CARBON DIOXIDE 25.4 MMOL/L (24-32); TOTAL PROTEIN 4.6 G/DL (6.4-8.2); eGFR 68 ML/MIN
[2020-08-30 06:00] VITALS: BP 97/39
--- NOTE | 2020-08-30 06:40 | NUR ---
Problems reprioritized. Patient report given, questions answered & plan of care reviewed with Erika CARRION.
--- NOTE | 2020-08-30 06:52 | NUR ---
Patient in room [facility]THO 4009B. I have received report from SHEYLA Montgomery and had the opportunity to ask questions and assume patient care.
[2020-08-30] MEDS: K and/or MAG REPLACEMENT MC SCH ×2 (07:28→07:31)
[2020-08-30] MEDS: lisinopril 10 MG tablet PO SCH (08:00)
[2020-08-30] MEDS: docusate sod 100mg capsule PO SCH (08:00)
[2020-08-30] MEDS: citalopram 20mg tablet PO SCH (09:29)
[2020-08-30] MEDS: aspirin 81mg tablet.DR PO SCH (09:30)
[2020-08-30] MEDS: carbidoba-levodopa 25-100mg tablet PO SCH (09:30)
[2020-08-30] MEDS: lactobacillus rhamnosus 10,000 MMU CELLS/CAPSULE PO SCH (09:30)
[2020-08-30] MEDS: heparin, porcine 5000 units/ml vial SQ SCH (09:33)
[2020-08-30] MEDS: normal saline 1000ml 1,000 ML IV SCH (09:41)
[2020-08-30 10:00] VITALS: BP 88/43
[2020-08-30] MEDS ORDERED: ipratropium/albuterol 3ml nebule NEB ONE (11:45)
[2020-08-30] MEDS ORDERED: predniSONE 20 mg tablet PO ONE ×2 (11:45→13:55)
--- NOTE | 2020-08-30 11:59 | NUR ---
Eddie Consult: Eddie 12; R ankle surgical site otherwise skin intact. Pt admit w/ R ankle fx s/p ORIF; also DX HTN, UTI, and Parkinson's per MD note. PO ~50% avg regular diet fluctuating w/ refusal of breakfast this AM. Noted pt AOx2 per EMR likely to impact PO as well. Diarrhea noted last night w/ BMx3 this AM receiving PRN imodium per EMR. RD recommends ensure enlive TIDWM for additional protein/kcal needs post-op; DAT INSTRUCTOR notified. RD d/w RN regarding routine MVI for wound healing if MD agreeable. Will continue to monitor for additional protein needs post-op. Rec: 1. continue regular diet; encourage PO 2. ensure enlive TIDWM 3. MVI for wound healing 4. bowel care per rx 5. scaled wt this admit Addendum: 08/30/20 at [address] Amended: Links added.
[2020-08-30 12:30] VITALS: BP 110/43
[2020-08-30] MEDS ORDERED: lactose-reduced food (Ensure Enlive) - 237ml bottle PO SCH (13:00)
--- NOTE | 2020-08-30 13:01 | NUR ---
Page Sent PAGER ID: [phone] MESSAGE: MATT [id number] RUTHY MAYA...PT REFUSED PREDNISONE...PT STILL HAS AUDIBLE WHEEZES
--- NOTE | 2020-08-30 16:02 | NUR ---
PT ASSISTED IN GATHERING BELONGINGS, RIGHT IV WAS DC AND NEW IV STARTED IN R FOREARM, NO COMPLICATIONS. REPORT CALLED TO DAWOOD AT [facility]. PT WAS LOADED ONTO [facility] IN STABLE CONDITION.
== END 2020-08-30 15:17 | DRG 492 ==
LOC: ER 22:36 → ED HOLD 08-25 04:43 → UNDOADMIN 08-25 04:43 → ED HOLD 08-25 05:10 → ORTHO 4S 08-25 05:10 → CMPBEDREQ 08-25 05:59
PROVIDERS: ADMIT Internal Medicine; ATTEND Family Medicine
PROC: 0SSFXZZ Reposition Right Ankle Joint, External Approach (ICD-10-PCS; 2020-08-24)
PROC: 0QSG04Z Reposition Right Tibia with Internal Fixation Device, Open Approach (ICD-10-PCS; 2020-08-25)
PROC: 3E0T3BZ Introduction of Anesthetic Agent into Peripheral Nerves and Plexi, Percutaneous Approach (ICD-10-PCS; 2020-08-25)
PROC: 0QSJ04Z Reposition Right Fibula with Internal Fixation Device, Open Approach (ICD-10-PCS; principal; 2020-08-25 13:24)
DX: S82.841A Displaced bimalleolar fracture of right lower leg, initial encounter for closed fracture (principal); J18.9 Pneumonia, unspecified organism; N39.0 Urinary tract infection, site not specified; F32.9 Major depressive disorder, single episode, unspecified; G20 Parkinson's disease; I10 Essential (primary) hypertension; Z66 Do not resuscitate; J98.01 Acute bronchospasm; M81.0 Age-related osteoporosis without current pathological fracture; W01.0XXA Fall on same level from slipping, tripping and stumbling without subsequent striking against object, initial encounter; Z60.2 Problems related to living alone; Y93.01 Activity, walking, marching and hiking; R26.89 Other abnormalities of gait and mobility; R29.6 Repeated falls; S93.04XA Dislocation of right ankle joint, initial encounter; Z79.899 Other long term (current) drug therapy; Z90.710 Acquired absence of both cervix and uterus; Z28.21 Immunization not carried out because of patient refusal; Y99.8 Other external cause status; Z79.82 Long term (current) use of aspirin; Y92.098 Other place in other non-institutional residence as the place of occurrence of the external cause
CPT/HCPCS: 36415; 71045; 73600; 73610; 80053; 81001; 83735; 85007; 85025; 87081; 87088; 87324; 87449; 93005; 94640; 94760; 94799; 96361; 96372; 96374; 96375; 97110; 97116; 97161; 97530; 97535; 99285; A4215; A4618; A6449; A7000; C1713; G0378; J0690; J0696; J1644; J1885; J2250; J2405; J2795; J3010; J7030; J7120; J7512